=== PATIENT | female | born 1975 | race Caucasian/White ===

== ENCOUNTER 2024-04-04 18:48 | Emergency (ER) | payer BC, SELFPAY ==
[2024-04-04 18:51] VITALS: BMI 22.6
[2024-04-04 18:55] VITALS: BP 94/68
[2024-04-04] MEDS: NSS 1000 IV (19:00)
[2024-04-04 19:04] VITALS: BP 106/70
[2024-04-04 19:08] LABS: % Basophils 0.4 % (0-2); % Eosinophils 0.5 % (0-6); % Immature Granulocytes 0.9 % (0-0.5); % Lymphocytes 5.9 % (20.5-51.1); % Monocytes 4.8 % (1.7-9.3); % Neutrophils 87.5 % (42.2-75.2); Absolute Eosinophils 0.1 10^3/uL (0-0.7); Absolute Immature Granulocytes 0.1 10^3/uL (0-0.05); Absolute Lymphocytes 0.7 10^3/uL (1.2-3.4); Absolute Monocytes 0.5 10^3/uL (0.1-0.6); Absolute Neutrophils 9.7 10^3/uL (1.4-6.5); Hematocrit 35.8 % (37.0-47.0); Hemoglobin 12.6 g/dL (12.0-16.0); Mean Corp Hgb Conc. 35.2 g/dL (33.0-37.0); Mean Corpuscular Hgb 31.1 pg (27.0-31.0); Mean Corpuscular Volume 88.4 fL (81.0-99.0); Mean Platelet Volume 10.2 fL (7.4-10.4); Nucleated Red Blood Cells % 0 %; Platelet Count 221 10^3/uL (130-400); Red Blood Cell Count 4.05 10^6/uL (4.20-5.40); Red Cell Dist. Width 12.6 % (11.5-14.5)
[2024-04-04 19:24] LABS: ALT (SGPT) 12 U/L (0-35); AST (SGOT) 27 U/L (14-36); Albumin 4.7 g/dl (3.5-5.0); Alkaline Phosphatase 70 U/L (38-126); Blood Urea Nitrogen 10 mg/dl (7-17); Calcium 8.9 mg/dl (8.4-10.2); Carbon Dioxide 25 mmol/L (22-30); Chloride 104 mmol/L (98-107); Estimated Creatinine Clearance 97 ml/min; Glucose 94 mg/dl (70-99); Potassium 4.3 mmol/L (3.5-5.1); Sodium 139 mmol/L (135-145); Total Bilirubin 1.1 mg/dl (0.2-1.3); Total Protein 7.5 g/dl (6.3-8.2); eGFR > 60.00
[2024-04-04 20:00] VITALS: BP 100/63
--- NOTE | 2024-04-04 20:28 | ED.GENMED ---
History of Present Illness
General
Chief Complaint: Dehydration Symptoms
Source: patient
Exam Limitations: none
Time Seen by Provider: 04/04/24 18:55
Nursing documentation reviewed up to this point in time: agreed with
History of Present Illness
History of Present Illness:
Patient to ED wt complaint of 'twitching'. Patient states she had 2 drinks today, felt sick and vomited. Twitching started after that. Describes generalized intermittent twitching. Brought to ED by spouse for eval. Admits to not eating or
drinking (except 2 alcohol drinks) today.
Past History
Past History
ED Past Medical History: None
ED Past Surgical History: None
Review of Systems
Review of Systems
Allergies reviewed?: Yes
All Other Systems: ROS reviewed and negative except as documented in HPI and ROS
Constitutional: Reports no symptoms
EENT: Reports no symptoms
Respiratory: Reports no symptoms
Cardiac: Reports no symptoms
ABD/GI: Reports nausea and vomiting
: Reports no symptoms
Musculoskeletal: Reports no symptoms
Skin: Reports no symptoms
Neurological: Reports other (Generalized intermittent twitching)
Psychiatric: Reports no symptoms
Phy Exam
General Physical Exam
General Presentation: well appearing and no apparent distress
General age: appears stated age
General Skin: warm and dry
General Habitus: normal
General Mental: alert
Cardiovascular Exam
Cardiovascular Exam: regular rate/rhythm and no edema
Pulmonary Exam
Pulmonary Exam: lungs clear and no respiratory distress
Neurological Exam
Neurological Exam: alert, oriented x3, no motor deficits, no sensory deficits, speech normal and other (No twitching noted in dept.)
Musculoskeletal Exam
Musculoskeletal Exam: full ROM and neuro vasc intact
Skin Exam
Skin Exam: normal color, warm/dry and no rash
Psychiatric Exam
Psychiatric Exam: normal mood/affect
Course
Orders/Labs/Results
Orders:
Orders
04/04/24 18:55
EKG [Electrocardiogram (*1)] Urgent
Reason for Study: Fatigue / Weakness
EKG- Treatment ONCE
04/04/24 18:59
0.9% Sodium Chloride 1000 ml [Nss] 1,000 ml IV BOLUS
04/04/24 19:01
Comprehensive Metabolic Panel Urgent
04/04/24 19:02
Complete Blood Count/With Diff Urgent
Abnormal Lab Results
04/04/24
19:02
WBC 11.0 H 10^3/uL
(4.8-10.8)
RBC 4.05 L 10^6/uL
(4.20-5.40)
Hct 35.8 L %
(37.0-47.0)
MCH 31.1 H pg
(27.0-31.0)
Abs Immat Gran (auto) 0.1 H 10^3/uL
(0-0.05)
Absolute Neuts (auto) 9.7 H 10^3/uL
(1.4-6.5)
Absolute Lymphs (auto) 0.7 L 10^3/uL
(1.2-3.4)
Immature Gran % 0.9 H %
(0-0.5)
Neutrophils % 87.5 H %
(42.2-75.2)
Lymphocytes % 5.9 L %
(20.5-51.1)
04/04/24 19:02
04/04/24 19:01
Vital Signs
Initial and Last Documented VS:
Initial Vital Signs
Temp Pulse Resp BP Pulse Ox
97.5 F 70 17 94/68 97
04/04/24 18:55 04/04/24 18:55 04/04/24 18:55 04/04/24 18:55 04/04/24 18:55
Last Documented Vital Signs
Temp Pulse Resp BP Pulse Ox
97.5 F 66 10 100/63 100
04/04/24 18:55 04/04/24 20:30 04/04/24 20:30 04/04/24 20:00 04/04/24 20:30
*Critical Care Note
Total Time (30-74mins, 75-104mins- exclusive of procedures): Not Applicable
Update Note
Update Note:
Improved iwth IVF. No twitching while in dept. Will discharge home and recommend f/u with PCP in AM. She was given instructions on s/s to return to ED and she is agreeable to plan.
ED Attending Note
-
Portions of this chart may have been created with voice recognition software.� Occasional wrong word or��sound alike� substitutions may have occurred due to the inherent limitations of voice recognition software.
Discharge Plan
Departure
Patient Disposition: Home (Routine Discharge)
Date of Disposition: 04/04/24
Time of Disposition: 20:27
Patient with high blood pressure during this ER visit?: No
Condition: Good
Covid-19: Not Applicable
Discharge Problem:
Dehydration
Instructions: Dehydration, Adult (DC)
Prescriptions:
No Action
No Current Medications
0
Referrals:
Yael Stafford CRNP [Family Provider] - Follow up in 2-3 days
Interventions
Interventions:
*Risk Screen - Suicide Last Done: 04/04/24 18:55
*General Assessment Last Done: 04/04/24 18:57
*Neglect/Abuse Screening Last Done: 04/04/24 18:55
ED- Fall Risk Assessment Last Done: 04/04/24 20:39
*ED COVID-19 Vaccine History Last Done: 04/04/24 18:55
*Nursing Disposition Last Done: 04/04/24 20:39
ED- Cardiac Assessment Last Done: 04/04/24 19:00
ED- Neurological Assessment Last Done: 04/04/24 19:00
ED- Pulmonary Assessment Last Done: 04/04/24 19:00
Discharge Date and Time
Discharge Date/Time: 04/04/24 20:40
Print Language: BELARUSIAN
== END 2024-04-04 20:40 | disposition home or self-care (01) ==
LOC: EMR 18:48
PROVIDERS: Nurse Practitioner; EMERGENCY PHYSICIAN Emergency Medicine; FAMILY PHYSICIAN Nurse Practitioner Family
DX: E86.0 Dehydration (principal); R25.3 Fasciculation
CPT/HCPCS: 99283; 96360; 80053; 85025; 93005